=== PATIENT | male | born 1955 | race Caucasian/White ===

== ENCOUNTER → 2020-04-12 09:04 | Outpatient (BNVA) | payer MEDICARE, SELFPAY | PROVIDERS: Family Provider Nurse Practitioner; PCP Nurse Practitioner; Visit Provider Nurse Practitioner Family | DX: M79.671 Pain in right foot (principal); I10 Essential (primary) hypertension; K21.9 Gastro-esophageal reflux disease without esophagitis; L03.115 Cellulitis of right lower limb; R79.89 Other specified abnormal findings of blood chemistry; F41.9 Anxiety disorder, unspecified; R60.9 Edema, unspecified; F17.210 Nicotine dependence, cigarettes, uncomplicated | CPT/HCPCS: 73630; 80053; 80061; 83036; 83880; 84443; 85025 ==

== ENCOUNTER → 2021-05-24 08:08 | Outpatient (BNVA) | payer MEDICARE, SELFPAY | PROVIDERS: Family Provider Nurse Practitioner; PCP Nurse Practitioner; Visit Provider Nurse Practitioner Family | DX: Z20.822 Contact with and (suspected) exposure to COVID-19 (principal); J06.9 Acute upper respiratory infection, unspecified | CPT/HCPCS: 87635 ==

== ENCOUNTER → 2022-01-19 11:52 | Outpatient (BNVA) | payer MEDICARE, SELFPAY | PROVIDERS: Family Provider Nurse Practitioner; PCP Nurse Practitioner; Visit Provider Family Medicine | DX: I10 Essential (primary) hypertension (principal); L03.116 Cellulitis of left lower limb; M79.2 Neuralgia and neuritis, unspecified; R79.89 Other specified abnormal findings of blood chemistry; Z12.5 Encounter for screening for malignant neoplasm of prostate | CPT/HCPCS: 80053; 80061; 82607; 83036; 84443; G0103 ==

== ENCOUNTER 2022-04-19 08:11 | Outpatient (CLI) | payer MEDICARE, SELFPAY ==
--- NOTE | 2022-04-19 08:30 | USCV_ITS ---
Michele Ly Age: 66 Gender: M : 1955 Exam Date: 04/19/2022 08:33 Ordering Phys: Dionne Baires MD Technologist: BARBARA Exam Location: [facility] – [place] Indication: BILAT WEAKNESS AND DISCOLORATION Risk Factors: Previous Vascular Surgery: RIGHT LEFT BP: 185.0 / 96.00 BP: 196.0/ 103.00 0 0 Waveform Velocity (cm/s) Velocity (cm/s) Waveform Triphasic 67.9 Iliac Prox 62.8 Triphasic Biphasic 56.8 Iliac Mid 60.4 Triphasic Biphasic 73.4 Iliac Distal 79.0 Triphasic Biphasic 115.8 STRAW HAT PRESSER 112.8 Triphasic Biphasic 48.2 SFA Prox 51.3 Triphasic Biphasic 60.6 SFA Mid 94.8 Triphasic Biphasic SFA Dist Biphasic 38.8 111.1 Biphasic 35.8 POP 88.9 Monophasic N/A MECHANICAL PROJECT MANAGER 47.4 Monophasic N/A DPA N/A ASYA 0.4 FINDINGS NO FLOW SEEN IN RIGHT MECHANICAL PROJECT MANAGER, DPA AND LEFT DPA. Mild to moderate diffuse dense irregular plaques in the iliac and femoral arteries bilaterally No Doppler flow signals in the dorsalis pedis and posterior tibial artery on the right side. No Doppler flow signals in the dorsalis pedis artery on the left side. ASYA of 0.4 on the left side CONCLUSIONS 1. Abnormal resting ASYA on the left side of 0.4, suggesting severe peripheral artery disease, possibly involving the popliteal and infrapopliteal vessels 2. The posterior tibial and dorsalis pedis artery on the right side appears to be totally occluded No similar previous studies are available for comparison Dr Pablo Bernstein MD [facility] (Electronically Signed) Final Date: 19 April 2022 19:41 S
== END 2022-04-19 08:12 | disposition home or self-care (01) ==
PROVIDERS: Family Provider Nurse Practitioner; PCP Family Medicine; Visit Provider Family Medicine
DX: I73.9 Peripheral vascular disease, unspecified (principal); M79.671 Pain in right foot; M79.672 Pain in left foot
CPT/HCPCS: 93925

== ENCOUNTER → 2022-05-05 07:36 | Outpatient (BNVA) | payer MEDICARE, SELFPAY | PROVIDERS: Family Provider Nurse Practitioner; PCP Family Medicine; Visit Provider Urology | DX: R97.20 Elevated prostate specific antigen [PSA] (principal) | CPT/HCPCS: 36415; 81003; 84153; 99203 ==

== ENCOUNTER → 2022-05-18 15:00 | Outpatient (BNVA) | payer MEDICARE, SELFPAY | PROVIDERS: Family Provider Nurse Practitioner; PCP Family Medicine; Visit Provider Thoracic Surgery (Cardiothoracic Vascular Surgery) | DX: I73.9 Peripheral vascular disease, unspecified (principal) | CPT/HCPCS: 99203; 99204 ==

== ENCOUNTER 2022-06-21 16:14 | Outpatient (CLI) | payer MEDICARE, SELFPAY ==
--- NOTE | 2022-06-21 16:30 | CT_ITS ---
WS: [id number] CT ANGIOGRAPHY OF THE ABDOMINAL AORTA WITH RUNOFF TO THE ANKLES HISTORY: PVD TECHNIQUE: Arterial injection is performed during imaging to evaluate the aorta and runoff vessels to the ankles. MIP and volume rendering imaging has also been performed. All images are reviewed. All C T scans at [facility] use at least one of these dose optimization techniques: automated exposu re control; mA and/or kV adjustment per patient size (includes targeted exams where dose is matched t o clinical indication); or iterative reconstruction. Contrast: Omnipaque 350; 95 mL IV. DLP: 916.03 mGy.cm COMPARISON: None available. Mild chronic emphysematous changes at the lung bases. Heart size is normal. Very small distal esophag eal wall thickening. Abdominal aorta: Very good opacification of the abdominal aorta. Scattered plaque and intimal thicken ing with progression towards the bifurcation. No aneurysm. Intimal thickening is asymmetric to the LE FT. Mild stenosis origin of the celiac axis. Moderate plaque at the origin of the SMA. Additional vj que in mild stenosis in the distal SMA. LUIZ is patent with atherosclerotic disease. Calcified plaque at the origins of the renal arteries. No occlusions. Kidneys are enhancing symmetrically. RIGHT lower extremity arterial system: Calcified plaque continues into the RIGHT common, internal and external iliac arteries. Combination of calcified plaque with mural thrombus. Mild stenosis origin o f the internal iliac artery. Heavy plaque along the internal iliac artery. Mild plaque along the exte rnal iliac artery. 50% stenosis involving the distal external iliac artery. Calcified plaque extends over length of several centimeters into the common femoral artery. There is very dense calcified plaq ue at the origin SFA. Occluded origin SFA. Near immediate reconstitution of the may be a very tiny re sidual lumen. Small caliber with heavily diseased SFA. Multifocal areas of stenosis with calcified pl aque in the popliteal artery. Patent lumen is probably still present but the plaque is obscuring the lumen. Calcified plaque continues of popliteal artery. Intermittently visualized three-vessel runoff to the ankle. Anterior tibial arteries have a calcified may be completely occluded. The most robust r unoff to the ankle is via the peroneal artery. Posterior tibial arteries probably heavily calcified a nd completely obstructed intermittently. LEFT lower extremity arterial system: Moderate calcified plaque and intimal thickening. Moderately di seased internal iliac artery. Only mild atherosclerotic plaque through the external iliac artery to t he bifurcation. At the bifurcation involving the proximal SFA there is a high-grade stenosis of 70%. There are tandem stenoses in the proximal SFA. Calcified plaque continues throughout the SFA with mul tifocal areas of 50% stenosis. Complete occlusion or near complete occlusion distal LEFT thigh. There is significant plaque in the distal SFA causing multifocal areas of stenosis or occlusion. Attempts at reconstitution. Heavy calcified plaque distal Yinka's canal and probable complete occlusion. Heav y calcified plaque continues to the popliteal artery. Occlusions or high-grade stenosis continue into the distal popliteal artery. Occluded and calcified anterior tibial artery. Heavily calcified child care sitter ior tibial artery. There is contrast enhancement within the peroneal and posterior tibial arteries al though small caliber. Normal size liver and spleen. Mild atrophy of the pancreas. Normal gallbladder. No bile duct dilatati on. Negative adrenal glands. No renal mass or obstruction. No adenopathy or ascites. No GI tract obst ruction. Normal appendix. Mild diffuse urinary bladder wall thickening from underdistention. CT/CT angio abd aorta runof [id number] IMPRESSION: 1. Bilateral multifocal areas of moderate to severe stenoses with complete occ lusions. 2. Moderate atherosclerosis abdominal aorta with no aneurysm. 3. Mild stenosis origin of celiac axis and moderate origin SMA. 4. Very dense calcified plaque origin RIGHT SFA. Suspect near complete occlus ion with a small residual lumen. On the curved reformats the lumen is patent st enosis greater than 80%. 5. Small caliber heavily diseased RIGHT SFA with multifocal areas of stenosis. 6. Poor three-vessel runoff to the ankle. Runoff to the RIGHT ankle is predomi nantly via the peroneal artery. Anterior and posterior tibial arteries appear i ntermittently obstructed. 7. High-grade stenosis LEFT proximal SFA. Additional tandem stenosis proximal SFA of 70%. 8. High-grade stenosis with areas of occlusion involving the distal SFA to the popliteal artery on the LEFT. 9. Severe disease anterior and posterior tibial arteries on the LEFT. Suspect areas of occlusion involving the anterior tibial artery.
[2022-06-21 17:06] LABS: Blood Urea Nitrogen 8 mg/dL (8-23); Glomerular Filtration Rate 74.8 mL/min (90-130)
[2022-06-21] MEDS: iohexol 350 mg/mL 100 mL Btl IV (17:21)
== END 2022-06-21 16:15 | disposition home or self-care (01) ==
PROVIDERS: PCP Family Medicine; Visit Provider Thoracic Surgery (Cardiothoracic Vascular Surgery)
DX: I70.0 Atherosclerosis of aorta (principal); I70.203 Unspecified atherosclerosis of native arteries of extremities, bilateral legs
CPT/HCPCS: 75635; 82565; 84520

== ENCOUNTER → 2022-07-10 12:08 | Outpatient (BNVA) | payer MEDICARE, SELFPAY | PROVIDERS: PCP Family Medicine; Visit Provider Internal Medicine | DX: I10 Essential (primary) hypertension (principal); I73.9 Peripheral vascular disease, unspecified; F17.210 Nicotine dependence, cigarettes, uncomplicated | CPT/HCPCS: 99204 ==

== ENCOUNTER → 2023-02-02 11:19 | Outpatient (BNVA) | payer MEDICARE, SELFPAY | PROVIDERS: PCP Family Medicine; Visit Provider Family Medicine | DX: I10 Essential (primary) hypertension (principal); Z12.5 Encounter for screening for malignant neoplasm of prostate | CPT/HCPCS: 80053; 80061; 84443; 85025; G0103 ==